=== PATIENT | male | born 1985 | race Caucasian/White ===

== ENCOUNTER 2019-08-13 09:57 | Day surgery (SDC) | payer OTHER ==
[~2019-08-13] VITALS: Ht 188 cm; Wt 102.5 kg
[~2019-08-13 09:57] MED LIST: RANITIDINE PO
[2019-08-13 13:04] VITALS: BP 121/80
== END 2019-08-13 13:17 | disposition home or self-care (01) ==
LOC: ORM 09:57
PROVIDERS: ATTEND Surgery
DX: K50.111 Crohn's disease of large intestine with rectal bleeding (principal); K64.4 Residual hemorrhoidal skin tags; Z80.0 Family history of malignant neoplasm of digestive organs

== ENCOUNTER 2020-07-15 18:10 | Emergency (ER) | payer OTHER ==
[~2020-07-15] VITALS: Ht 190.5 cm; Wt 95.0 kg
[2020-07-15] MEDS ORDERED: PERCOCET 5/325M1 TAB PO (23:58)
[2020-07-15] MEDS ORDERED: ORPHENADRINE100 MG PO (23:58)
[2020-07-16 00:38] VITALS: BP 141/69
== END 2020-07-16 00:38 | disposition home or self-care (01) | DRG 552 ==
LOC: ED 18:10
DX: M51.26 Other intervertebral disc displacement, lumbar region (principal)

== ENCOUNTER 2021-10-18 18:21 | Emergency (ER) | payer OTHER ==
[~2021-10-18] VITALS: Ht 190.5 cm; Wt 97.0 kg
[~2021-10-18 18:21] MED LIST changes: +ORPHENADRINE100 MG PO; +PERCOCET 5/325M1 TAB PO
[2021-10-18] MEDS ORDERED: MED MARIJUANA (22:28)
[2021-10-18 23:00] LABS: HEMATOCRIT 42.6 % (39.0-50.0); HEMOGLOBIN 14.8 g/dl (14.0-18.0); IMMATURE GRANULOCYTES 0.1 % (0.0-5.0); MEAN CELL VOLUME 94.9 fL CALC (80.0-100.0); MEAN CORPUSCULAR HGB CONC 34.7 g/dL CAL (32.0-36.0); NEUT# 4.82 thou/uL (1.82-7.42); RED BLOOD COUNT 4.49 mill/uL (4.70-6.10); RED CELL DISTRI WIDTH 12.1 % (11.5-15.5)
[2021-10-18 23:11] LABS: ALBUMIN 4.7 g/dL (3.2-5.0); ALKALINE PHOSPHATASE 115 u/l (38-126); AMYLASE 78 u/l (30-110); ANION GAP 13 (6-22 (CALC)); BILIRUBIN, TOTAL 0.8 mg/dL (0.0-1.4); BUN 17 mg/dL (9-20); BUN/CREATININE RATIO 15 (12-20 (CALC)); CARBON DIOXIDE 27 mmol/l (22-30); CHLORIDE 102 mmol/l (95-108); CREATININE 1.1 mg/dL (0.7-1.3); GFR > 60 ML/MIN (>=60 (CALC)); GFR FOR AFR.AMER. > 60 ML/MIN (>=60 (CALC)); LIPASE 100 u/l (23-300); SGOT/AST 27 u/l (17-59); SODIUM 137 mmol/l (137-146)
[2021-10-18] MEDS ORDERED: ONDANSETRON4 MG PO (23:43)
[2021-10-19 00:55] VITALS: BP 129/76
== END 2021-10-19 01:00 | disposition home or self-care (01) ==
LOC: ED 18:21
PROVIDERS: Emergency Medicine
DX: U07.1 COVID-19 (principal); A08.39 Other viral enteritis

== ENCOUNTER 2021-11-19 20:57 | Emergency (ER) | payer OTHER ==
[~2021-11-19] VITALS: Ht 190.5 cm; Wt 98.0 kg
[~2021-11-19 20:57] MED LIST changes: +MED MARIJUANA; +ONDANSETRON4 MG PO
[2021-11-19 21:45] LABS: HEMATOCRIT 47.4 % (39.0-50.0); HEMOGLOBIN 16.3 g/dl (14.0-18.0); IMMATURE GRANULOCYTES 0.2 % (0.0-5.0); MEAN CELL VOLUME 93.9 fL CALC (80.0-100.0); MEAN CORPUSCULAR HGB 32.3 pG CALC (26.0-32.0); MEAN CORPUSCULAR HGB CONC 34.4 g/dL CAL (32.0-36.0); NEUT# 10.22 thou/uL (1.82-7.42); RED BLOOD COUNT 5.05 mill/uL (4.70-6.10); RED CELL DISTRI WIDTH 12.1 % (11.5-15.5)
[2021-11-19 21:57] LABS: ALBUMIN 4.5 g/dL (3.2-5.0); ALKALINE PHOSPHATASE 109 u/l (38-126); AMYLASE 58 u/l (30-110); ANION GAP 18 (6-22 (CALC)); BILIRUBIN, TOTAL 0.8 mg/dL (0.0-1.4); BUN 18 mg/dL (9-20); BUN/CREATININE RATIO 16 (12-20 (CALC)); CARBON DIOXIDE 21 mmol/l (22-30); CHLORIDE 106 mmol/l (95-108); CREATININE 1.1 mg/dL (0.7-1.3); GFR > 60 ML/MIN (>=60 (CALC)); GFR FOR AFR.AMER. > 60 ML/MIN (>=60 (CALC)); LIPASE 61 u/l (23-300); POTASSIUM 4.2 mmol/l (3.5-5.1); SGOT/AST 25 u/l (17-59); SODIUM 141 mmol/l (137-146); TOTAL PROTEIN 8.7 g/dL (6.3-8.2)
[2021-11-19] MEDS ORDERED: ONDANSETRON4 MG PO (23:58)
[2021-11-20 00:20] LABS: URINE BILIRUBIN - DIPSTICK NEGATIVE (NEGATIVE); URINE BLOOD DIPSTICK TRACE-INTACT (NEGATIVE); URINE COLOR YELLOW; URINE GLUCOSE - DIPSTICK NEGATIVE (NEGATIVE); URINE KETONE TRACE mg/dL (NEGATIVE); URINE LEUK ESTERASE NEGATIVE (NEGATIVE); URINE NITRITE - DIPSTICK NEGATIVE (Negative); URINE PH 5.5 (4.5-8.0); URINE PROTEIN - DIPSTICK NEGATIVE (NEG-TRACE); URINE SPECIFIC GRAVITY >=1.030; URINE UROBILINOGEN - DIPSTICK 0.2 E.U./dL (0.2)
[2021-11-20] MEDS ORDERED: BACTRIM DS1 TAB PO (00:30)
[2021-11-20] MEDS ORDERED: LOMOTIL2.5 MG PO (03:15)
[2021-11-20 03:33] VITALS: BP 118/72
== END 2021-11-20 03:30 | disposition home or self-care (01) ==
LOC: ED 20:57
PROVIDERS: Emergency Medicine
DX: A08.39 Other viral enteritis (principal); Z20.822 Contact with and (suspected) exposure to COVID-19
CPT/HCPCS: Q9967

== ENCOUNTER 2022-11-12 08:16 | Emergency (ER) | payer OTHER ==
[~2022-11-12] VITALS: Ht 190.5 cm; Wt 95.4 kg
[~2022-11-12 08:16] MED LIST changes: +BACTRIM DS1 TAB PO; +LOMOTIL2.5 MG PO
[2022-11-12 08:54] LABS: BASO% 0.2 % (0-3); EOS% 0.2 % (0-8); IMMATURE GRANULOCYTES 0.2 % (0.0-5.0); LYMPH% 12.5 % (15-41); MEAN CELL VOLUME 92.1 fL CALC (80.0-100.0); MEAN CORPUSCULAR HGB 32.2 pG CALC (26.0-32.0); MONO% 15.4 % (2-13); NEUT# 4.66 thou/uL (1.82-7.42); NEUT% 71.5 % (42-76); RED BLOOD COUNT 4.44 mill/uL (4.70-6.10); RED CELL DISTRI WIDTH 11.9 % (11.5-15.5)
[2022-11-12 08:56] LABS: HEMATOCRIT 40.9 % (39.0-50.0); HEMOGLOBIN 14.3 g/dl (14.0-18.0)
[2022-11-12 09:09] LABS: ALBUMIN 4.9 g/dL (3.2-5.0); ALKALINE PHOSPHATASE 89 u/l (38-126); ANION GAP 11 (6-22 (CALC)); BILIRUBIN, TOTAL 0.5 mg/dL (0.2-1.3); BUN 15 mg/dL (9-20); BUN/CREATININE RATIO 13 (12-20 (CALC)); CHLORIDE 102 mmol/l (95-108); CREATININE 1.2 mg/dL (0.7-1.3); GFR FOR AFR.AMER. > 60 ML/MIN (>=60 (CALC)); GFR OTHER RACES > 60 ML/MIN (>=60 (CALC)); LIPASE 84 u/l (23-300); POTASSIUM 3.6 mmol/l (3.5-5.1); SGOT/AST 30 u/l (17-59); SODIUM 135 mmol/l (137-146); TOTAL PROTEIN 8.6 g/dL (6.3-8.2)
[2022-11-12 09:16] LABS: CARBON DIOXIDE 26 mmol/l (22-30)
[2022-11-12] MEDS ORDERED: TAM75CAP PO (09:19)
[2022-11-12] MEDS ORDERED: ZOFRAN4 MG/TAB PO (09:19)
[2022-11-12 09:29] VITALS: BP 145/67
== END 2022-11-12 09:37 | disposition home or self-care (01) ==
LOC: ED 08:16
PROVIDERS: Family Medicine
DX: J11.1 Influenza due to unidentified influenza virus with other respiratory manifestations (principal); Z20.822 Contact with and (suspected) exposure to COVID-19

== ENCOUNTER 2023-01-22 07:16 | Emergency (ER) | payer OTHER ==
[~2023-01-22] VITALS: Ht 190.5 cm; Wt 98.0 kg
[2023-01-22] VITALS (7 sets, daily range): BP systolic 115–138; BP diastolic 86–104
[~2023-01-22 07:16] MED LIST changes: +TAM75CAP PO; +ZOFRAN4 MG/TAB PO
[2023-01-22] MEDS ORDERED: OMEPRAZOLE DR40 MG (07:36)
[2023-01-22] MEDS ORDERED: OFLOXACIN0.3 % OU (08:32)
== END 2023-01-22 08:48 | disposition home or self-care (01) ==
LOC: ED 07:16
DX: S05.01XA Injury of conjunctiva and corneal abrasion without foreign body, right eye, initial encounter (principal); H10.9 Unspecified conjunctivitis; X58.XXXA Exposure to other specified factors, initial encounter

== ENCOUNTER 2023-02-05 14:47 | Emergency (ER) | payer OTHER ==
[~2023-02-05] VITALS: Ht 190.5 cm; Wt 81.0 kg
[~2023-02-05 14:47] MED LIST changes: +OFLOXACIN0.3 % OU; +OMEPRAZOLE DR40 MG
[2023-02-05 14:54] VITALS: BP 149/93
[2023-02-05 15:01] VITALS: BP 151/91
[2023-02-05 15:39] LABS: BASO% 0.3 % (0-3); EOS% 0.5 % (0-8); HEMATOCRIT 44.9 % (39.0-50.0); HEMOGLOBIN 15.2 g/dl (14.0-18.0); IMMATURE GRANULOCYTES 0.2 % (0.0-5.0); LYMPH% 16.2 % (15-41); MEAN CELL VOLUME 91.1 fL CALC (80.0-100.0); MEAN CORPUSCULAR HGB 30.8 pG CALC (26.0-32.0); MEAN CORPUSCULAR HGB CONC 33.9 g/dL CAL (32.0-36.0); MONO% 7.8 % (2-13); NEUT# 8.87 thou/uL (1.82-7.42); RED BLOOD COUNT 4.93 mill/uL (4.70-6.10); RED CELL DISTRI WIDTH 11.7 % (11.5-15.5)
[2023-02-05 15:57] LABS: ALBUMIN 4.8 g/dL (3.2-5.0); ALKALINE PHOSPHATASE 108 u/l (38-126); ANION GAP 16 (6-22 (CALC)); BILIRUBIN, TOTAL 0.5 mg/dL (0.2-1.3); BUN 18 mg/dL (9-20); BUN/CREATININE RATIO 15 (12-20 (CALC)); CARBON DIOXIDE 25 mmol/l (22-30); CHLORIDE 101 mmol/l (95-108); CREATININE 1.2 mg/dL (0.7-1.3); GFR FOR AFR.AMER. > 60 ML/MIN (>=60 (CALC)); GFR OTHER RACES > 60 ML/MIN (>=60 (CALC)); LIPASE 109 u/l (23-300); POTASSIUM 3.9 mmol/l (3.5-5.1); SGOT/AST 29 u/l (17-59); SODIUM 139 mmol/l (137-146); TOTAL PROTEIN 8.5 g/dL (6.3-8.2)
[2023-02-05 17:07] LABS: URINE BILIRUBIN - DIPSTICK NEGATIVE (NEGATIVE); URINE BLOOD DIPSTICK TRACE-INTACT (NEGATIVE); URINE COLOR YELLOW; URINE GLUCOSE - DIPSTICK NEGATIVE (NEGATIVE); URINE KETONE 40 mg/dL (NEGATIVE); URINE LEUK ESTERASE NEGATIVE (NEGATIVE); URINE PH 7.5 (4.5-8.0); URINE PROTEIN - DIPSTICK NEGATIVE (NEG-TRACE); URINE SPECIFIC GRAVITY 1.025; URINE UROBILINOGEN - DIPSTICK 0.2 E.U./dL (0.2)
[2023-02-05 17:09] LABS: URINE NITRITE - DIPSTICK NEGATIVE (Negative)
[2023-02-05] MEDS ORDERED: AZITHROMYCIN500 MG PO (20:05)
[2023-02-05] MEDS ORDERED: COMPAZINE10 MG PO (20:05)
[2023-02-05] MEDS ORDERED: ZOFRAN4 MG/TAB PO (20:05)
[2023-02-05 20:36] VITALS: BP 151/91
== END 2023-02-05 20:43 | disposition home or self-care (01) ==
LOC: ED 14:47
PROVIDERS: Nurse Practitioner
DX: K52.9 Noninfective gastroenteritis and colitis, unspecified (principal)
CPT/HCPCS: Q9967

== ENCOUNTER 2023-06-21 08:34 | Emergency (ER) | payer OTHER ==
[~2023-06-21] VITALS: Ht 190.5 cm; Wt 95.2 kg
[2023-06-21] VITALS (15 sets, daily range): BP systolic 102–142; BP diastolic 75–96
[~2023-06-21 08:34] MED LIST changes: +AZITHROMYCIN500 MG PO; +COMPAZINE10 MG PO
[2023-06-21 09:38] LABS: BASO% 0.2 % (0-3); EOS% 1.7 % (0-8); HEMATOCRIT 41.9 % (39.0-50.0); HEMOGLOBIN 14.4 g/dl (14.0-18.0); IMMATURE GRANULOCYTES 0.1 % (0.0-5.0); LYMPH% 17.3 % (15-41); MEAN CELL VOLUME 95.9 fL CALC (80.0-100.0); MEAN CORPUSCULAR HGB CONC 34.4 g/dL CAL (32.0-36.0); MONO% 8.7 % (2-13); NEUT# 5.95 thou/uL (1.82-7.42); RED BLOOD COUNT 4.37 mill/uL (4.70-6.10); RED CELL DISTRI WIDTH 12.1 % (11.5-15.5)
[2023-06-21 10:01] LABS: ALBUMIN 4.4 g/dL (3.2-5.0); ALKALINE PHOSPHATASE 96 u/l (38-126); ANION GAP 11 (6-22 (CALC)); BILIRUBIN, TOTAL 0.5 mg/dL (0.2-1.3); BUN 19 mg/dL (9-20); BUN/CREATININE RATIO 18 (12-20 (CALC)); CARBON DIOXIDE 30 mmol/l (22-30); CHLORIDE 101 mmol/l (95-108); GFR FOR AFR.AMER. > 60 ML/MIN (>=60 (CALC)); GFR OTHER RACES > 60 ML/MIN (>=60 (CALC)); POTASSIUM 4.1 mmol/l (3.5-5.1); SGOT/AST 26 u/l (17-59); SODIUM 138 mmol/l (137-146)
[2023-06-21] MEDS ORDERED: KEFLEX500 MG PO (11:43)
[2023-06-21] MEDS ORDERED: IBUPROFEN600 MG PO (11:43)
== END 2023-06-21 12:05 | disposition home or self-care (01) ==
LOC: ED 08:34
PROVIDERS: Emergency Medicine
DX: L03.116 Cellulitis of left lower limb (principal)

== ENCOUNTER 2024-07-10 12:37 | Emergency (ER) | payer SELFPAY ==
[~2024-07-10] VITALS: Ht 190.5 cm; Wt 101.0 kg
[2024-07-10] VITALS (13 sets, daily range): BP systolic 125–141; BP diastolic 87–103
[~2024-07-10 12:37] MED LIST changes: +IBUPROFEN600 MG PO; +KEFLEX500 MG PO; +PROTONIX40 M2 PO; +TRAMADOL HYDROC50 M1 PO
[2024-07-10] MEDS ORDERED: SODIUM CHLORIDE 0.9% 1,000 ML IV ONE (13:05)
[2024-07-10] MEDS ORDERED: KETOROLAC TROMETHAMINE 30 MG/ML SDV IV ONE (13:05)
[2024-07-10] MEDS ORDERED: DOXYCYCLINE HYCLATE 100 MG/CAP PO ONE (13:05)
[2024-07-10 13:23] LABS: BASO% 0.4 % (0-3); EOS% 0.2 % (0-8); HEMATOCRIT 43.6 % (39.0-50.0); HEMOGLOBIN 15.1 g/dl (14.0-18.0); IMMATURE GRANULOCYTES 0.1 % (0.0-5.0); LYMPH% 19.4 % (15-41); MEAN CELL VOLUME 93.4 fL CALC (80.0-100.0); MEAN CORPUSCULAR HGB 32.3 pG CALC (26.0-32.0); MEAN CORPUSCULAR HGB CONC 34.6 g/dL CAL (32.0-36.0); MONO% 11.2 % (2-13); NEUT# 5.73 thou/uL (1.82-7.42); NEUT% 68.7 % (42-76); RED BLOOD COUNT 4.67 mill/uL (4.70-6.10); RED CELL DISTRI WIDTH 11.4 % (11.5-15.5)
[2024-07-10 13:45] LABS: ALBUMIN 4.8 g/dL (3.2-5.0); BILIRUBIN, TOTAL 0.7 mg/dL (0.2-1.3)
[2024-07-10] MEDS ORDERED: DOXYCYCLINE100 MG PO (14:48)
[2024-07-10] MEDS ORDERED: IBUPROFEN600 MG PO (14:48)
== END 2024-07-10 15:14 | disposition home or self-care (01) | DRG 607 ==
LOC: ED 12:37
PROVIDERS: Emergency Medicine
DX: S70.362A Insect bite (nonvenomous), left thigh, initial encounter (principal); L08.9 Local infection of the skin and subcutaneous tissue, unspecified; W57.XXXA Bitten or stung by nonvenomous insect and other nonvenomous arthropods, initial encounter; Z20.822 Contact with and (suspected) exposure to COVID-19